=== PATIENT | female | born 1980 | race Caucasian/White ===

== ENCOUNTER 2017-02-28 13:14 | Observation (INO) ==
[2017-02-28] MEDS ORDERED: 0.9 % Sodium Chloride 1,000 ML IVC ONE ×3 (13:29→16:02)
--- NOTE | 2017-02-28 13:34 | Emergency Department Note ---
Disposition Clinical Impression: Orthostatic hypotension Syncope Qualifiers: Syncope type: unspecified Qualified Code(s): R55 - Syncope and collapse Disposition: Admitted As Inpatient Condition: Good Referrals: Nabil Brady DO [Primary Care Provider] - Forms: ED Satisfaction Letter, Work/School Release Time of Disposition: 16:32 General Adult HPI - General Chief complaint: ED General Medical Stated complaint: Not feeling well Time Seen by Provider: 02/28/17 13:22 Source: patient, family Limitations: no limitations Nursing Notes Reviewed: Yes Vital Signs Reviewed: Yes - History of Present Illness HPI Narrative: 37-year-old female presenting to the emergency department with chief complaint of hypotension and syncope. Patient has a long-standing history of these symptoms. Patient has followed up with cardiology and neurology for these symptoms. She was originally placed on steroids to treat her hypotension but she became too hypertensive and was taken off these. Patient states today when she woke up she was feeling not well and overall weak. This is normal for her symptoms of hypotension. She states she was crawling to the bathroom when she syncopized. This was unwitnessed. The patient states she feels that she is dehydrated and her mouth is dry. She denies any nausea, vomiting, diarrhea, recent illnesses. She denies fever. Denies chest pain and shortness of breath. Pain Scale: 0 - Related Data Home Medications Medication Instructions Recorded Confirmed Lurasidone [Latuda] 20 mg PO DAILY 05/12/16 05/12/16 Norethindrone-E.estradiol-Iron 1 tab PO DAILY 05/12/16 05/12/16 [Microgestin Fe 1-20 Tablet] Sertraline [Zoloft] 200 mg PO DAILY 05/12/16 05/12/16 Zaleplon [Sonata] 10 mg PO DAILY 05/12/16 05/12/16 Previous Rx's Medication Instructions Recorded Alprazolam [Xanax] 1 mg PO TID PRN #0 tablet 02/05/15 Citalopram [CeleXA] 20 mg PO DAILY tablet 02/05/15 Fludrocortisone Acetate [Florinef] 0.2 mg PO DAILY #30 tablet 05/13/16 HYDROcodone/Acet 5/325 mg [Crouse 1 tab PO Q4H PRN #10 tab 12/29/16 5-325 mg] Allergies Allergy/AdvReac Type Severity Reaction Status Date / Time No Known Allergies Allergy Verified 02/28/17 13:17 All systems ED: reviewed and negative except as stated. Constitutional: Denies: fever, chills Eyes: Reports: as per HPI ENT ED: Reports: as per HPI Cardiovascular: Denies: chest pain, palpitations Respiratory: Denies: cough, dyspnea, wheezes Gastrointestinal: Denies: abdominal pain, nausea, vomiting Genitourinary: Reports: as per HPI Musculoskeletal: Reports: as per HPI Integumentary: Reports: as per HPI Neurological: Reports: weakness. Denies: numbness, paresthesias Psychiatric: Reports: as per HPI Endocrine: Reports: fatigue Hematological/Lymphatic: Reports: as per HPI Allergic/Immunologic: Reports: as per HPI Past Medical History - Past Medical History Attestation: Yes The following information was validated with the patient. Medical history: Reports: syncope Psychiatric history: Reports: anxiety, depression, previous psychiatric hospitalization - Social History Smoking Status: Never smoker Smokeless Tobacco Status: No Alcohol use: Reports: none Drug use: Reports: none Physical Exam - General Limitations: no limitations General appearance: alert, in no apparent distress - Head Head exam: atraumatic, normocephalic - Chest Chest inspection: Present: normal inspection, symmetric chest wall rise. Absent : tenderness - Respiratory Respiratory exam: Present: normal lung sounds bilaterally. Absent: respiratory distress, wheezes - Cardiovascular Cardiovascular exam: Present: regular rate, normal rhythm, normal heart sounds - Abdominal Exam Abdominal exam: Present: soft, Non-Tender. Absent: distention, guarding, rebound - Extremities Exam Extremities exam: Present: normal inspection, full ROM - Neurological Exam Neurological exam: Present: alert, oriented X3 - Psychiatric Psychiatric exam: Present: normal affect, normal mood - Skin Skin exam: Present: warm, intact Course Course Narrative: 37-year-old female presenting to the emergency Department for chief complaint of hypotension. Patient has long-standing history of hypotension and syncopal episodes. We will fluid bolus and reassess. Starting map approximately 63 - Reevaluation(s) Reevaluation #1: Reassessment of the patient with systolic blood pressure 90 and about the last 5 readings. We will start a second fluid bolus and ambulate the patient to ensure no orthostatic hypotension. Time: 15:06 Reevaluation #2: Patient ambulated after second liter and felt nauseous and lightheaded. Patient will be given a third liter of fluid and reassess. We will reconsider possible admission versus discharge at that time. Time: 16:03 Reevaluation #3: Patient's orthostatics showed systolic of 66 while standing. We feel the patient is too unstable to be discharged home at this time. Patient agrees to be admitted to the hospital. Spoke with the hospitalist Augustus who accepted the patient and wanted a UA to be completed. Time: 16:31 Vital Signs Temperature 97.3 F L 02/28/17 13:15 Pulse Rate 70 02/28/17 13:15 Respiratory Rate 16 02/28/17 13:15 Blood Pressure 77/49 02/28/17 13:15 O2 Sat by Pulse Oximetry 96 02/28/17 13:15 Temperature 97.3 F L 02/28/17 13:15 Pulse Rate 57 02/28/17 16:22 Respiratory Rate 16 02/28/17 14:47 Blood Pressure 85/52 02/28/17 16:22 O2 Sat by Pulse Oximetry 99 02/28/17 14:47 Oxygen Delivery Oxygen Delivery Room Air Medical Decision Making - Medical Records Medical records reviewed: Yes I reviewed the patient's medical records. - Lab Data Lab results reviewed: Yes I reviewed the patient's lab results. Result diagrams: 02/28/17 13:35 02/28/17 13:35 Lab Results 02/28/17 02/28/17 02/28/17 Range/Units 13:35 13:35 13:35 WBC 6.7 (4.3-11.1) K/mcL RBC 4.89 (3.82-4.97) M/mcL Hgb 13.9 (11.5-15.4) g/dL Hct 41.9 (35.3-44.9) % MCV 85.7 (83.0-100.0) fL MCH 28.4 (28.0-33.3) pg MCHC 33.2 (31.6-35.5) g/dL RDW 12.3 (11.5-14.5) % Plt Count 266 (140-400) K/mcL MPV 9.0 L (9.4-12.4) fL Immature Gran % 0.1 (0-4) % Seg Neutrophils % 47.0 % Lymphocytes % 32.0 % Monocytes % 6.6 % Eosinophils % 13.7 % Basophils % 0.6 % Neutrophils # 3.2 (1.6-8.9) K/mcL Lymphocytes # 2.2 (0.6-4.6) K/mcL Monocytes # 0.4 (0.0-1.3) K/mcL Eosinophils # 0.9 H (0.0-0.6) K/mcL Basophils # 0.0 (0.0-0.2) K/mcL Sodium 135 L (136-145) mEq/L Potassium 4.2 (3.5-4.5) mEq/L Chloride 105 (98-109) mEq/L Carbon Dioxide 21 (19-29) mEq/L BUN 11 (7-20) mg/dL Creatinine 1.13 H (0.57-1.11) mg/dL Est GFR ( Amer) > 60 (> 60) Est GFR (Non-Af Amer) 54 L (> 60) BUN/Creatinine Ratio 10 (6-26) Glucose 90 (70-99) mg/dL Calculated Osmolality 279 L (280-300) Calcium 9.1 (8.6-10.8) mg/dL Serum , Qual Negative (Negative) - EKG Data EKG #1 EKG attestation: Yes I reviewed and interpreted this EKG. EKG results narrative: 60 bpm. Normal sinus rhythm. Normal axis. DC interval 128, QRS 78, QTC 461. No sign of ischemia or ST segment elevation. When compared to previous EKG completed on 10/05/2016 no acute changes.
[2017-02-28 13:41] LABS: Basophils % 0.6 %; Eosinophils # 0.9 K/mcL (0.0-0.6); Eosinophils % 13.7 %; Hematocrit 41.9 % (35.3-44.9); Hemoglobin 13.9 g/dL (11.5-15.4); Immature Granulocytes % 0.1 % (0-4); Lymphocytes # 2.2 K/mcL (0.6-4.6); Mean Corpuscular HGB Conc 33.2 g/dL (31.6-35.5); Mean Corpuscular Hemoglobin 28.4 pg (28.0-33.3); Mean Corpuscular Volume 85.7 fL (83.0-100.0); Monocytes # 0.4 K/mcL (0.0-1.3); Monocytes % 6.6 %; Neutrophils # 3.2 K/mcL (1.6-8.9); Platelet Count 266 K/mcL (140-400); Red Blood Count 4.89 M/mcL (3.82-4.97); Red Cell Distribution Width 12.3 % (11.5-14.5)
--- NOTE | 2017-02-28 13:47 | Emergency Department Note ---
START Narrative - START START: I examined this patient and my medical decision-making was reviewed with the emergency medicine resident. I agree with the documented findings, disposition and treatment plan as described except to the extent set forth below. Patient seen with emergency medicine resident Dr. SANDRITA GARCIA, Please see a copy of his note for details of the H&P, ED evaluation, management and disposition. I have independently evaluated the patient and confirmed appropriate portions of the history and physical exam. 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 Says she has been feeling poorly over the past years so normally she lies in bed and goes away in a day, days but has not done so. Has had multiple workups including cardiac and neurology. Denies fever chills vomiting diarrhea dysuria no contacts exotic food recent travel or recent medicine changes. Patient was systolic 77 in the emergency department she appeared tired up in a particular E Adri complected. Physical examination was benign she was performed bradycardic neurologically nonfocal no external signs of trauma or infection. EKG shows a sinus rhythm at about 60 bpm nonspecific changes no acute ischemic changes when compared to her prior EKG of September 2016. Patient states that she normally gets treated with IV fluids and gets better. We given a liter normal saline checking for CBC chemistry panel, EKG Disposition pending
[2017-02-28] MEDS: Ondansetron 4 MG/2 ML VIAL IVP ONE ×2 (13:50→14:01)
[2017-02-28 14:39] LABS: BUN/Creatinine Ratio 10 (6-26); Blood Urea Nitrogen 11 mg/dL (7-20); Calcium 9.1 mg/dL (8.6-10.8); Carbon Dioxide 21 mEq/L (19-29); Chloride 105 mEq/L (98-109); Glucose 90 mg/dL (70-99); Osmolality,Calculated 279 (280-300); Potassium 4.2 mEq/L (3.5-4.5); Sodium 135 mEq/L (136-145); eGFR For African Americans > 60 (> 60); eGFR For Non-African Americans 54 (> 60)
[2017-02-28 16:46] LABS: Bilirubin,Urine Negative (Negative); Blood,Urine Negative (Negative); Clarity,Urine Clear (Clear); Color,Urine Yellow (Yellow); Glucose,Urine (UA) Normal (Normal); Ketones,Urine Negative (Negative); Leukocyte Esterase,Urine Negative (Negative); Nitrite,Urine Negative (Negative); PH,Urine 6.5 pH Units (5.0-8.0); Protein,Urine Negative (Neg-Trace); Specific Gravity,Urine < 1.005 (1.010-1.025); Urobilinogen,Urine Normal (Normal)
[2017-02-28] MEDS ORDERED: Acetaminophen 325 MG TABLET PO PRN (18:43)
[2017-02-28] MEDS ORDERED: Naloxone 0.4 MG/ML INJ IVP PRN (18:43)
[2017-02-28] MEDS ORDERED: *HR* HYDROcodone/Acet 5/325 mg TABLET PO PRN (18:43)
[2017-02-28] MEDS ORDERED: Ondansetron 4 MG/2 ML VIAL IVP PRN (18:43)
[2017-02-28] MEDS ORDERED: *HR* Morphine 2 MG/ML SYRINGE IVP PRN (18:43)
--- NOTE | 2017-02-28 18:46 | Event Note ---
Date of Encounter: 02/28/17 Time of Encounter: 18:44 Patient seen and examined with nurse practitioner. Patient presents with syncopal episodes need to orthostasis. Etiology for orthostasis unclear. Maybe related to neurocardiogenic syncope. She has stopped taking her fludrocortisone a few month ago because it would raise her blood pressure. We will start fludrocortisone every other day. We also rule out adrenal insufficiency. No obvious infectious source. Urine is clean and chest on exam is normal. No evidence of bleeding. Continue hydration. Observation admission
--- NOTE | 2017-02-28 19:16 | Internal Med History&Physical ---
Date of Encounter: 02/28/17 Time of Encounter: 18:00 Assessment and Plan (1) Syncope Current visit: Yes Status: Acute Patient presents with acute on chronic episodes of syncope. Patient states she has had these symptoms for several years and has been seen by cardiology and neurology. Cardiology states she has orthostatic hypotension. Neurology states she has a spot on her brain that she has been referred to another neurologist for follow-up. Patient reports generalized weakness this morning when she became syncopal in the bathroom. Begin fludrocortisone acetate 0.1 mg every 48 to address hypotension. Orthostatic BPs and VS ordered. IV fluid hydration (patient received three boluses in the ED) to continue at 100 mL/HR. Falls/safety precautions ordered. EKG today shows 60 bpm. Normal sinus rhythm. Normal axis. LA interval 128, QRS 78, QTC 461. No sign of ischemia or ST segment elevation. When compared to previous EKG completed on 10/05/2016 no acute changes. Monitor patient and f/u labs. Qualifiers: Syncope type: unspecified Qualified Code(s): R55 - Syncope and collapse (2) Orthostatic hypotension Current visit: Yes Status: Chronic Hx of chronic orthostatic hypotension. Orthostatic BPs and VS ordered. Will begin fludrocortisone acetate 0.1 mg every 48. (3) Anxiety and depression Current visit: Yes Status: Chronic Hx of chronic anxiety, bipolar depression and previous suicidal ideation. Patient denies any current suicidal ideation and states that she was previously hospitalized for ideations approximately one year ago. Will continue Xanax and Zoloft. Hold Prozac due to risk for seratonin syndrome since patient also taking Zoloft. Hold Rexulti due to contraindications in taking with Xanax and Zoloft. Monitor patient for signs of depression, anxiety, and suicidal ideation. (4) DVT prophylaxis Current visit: Yes Status: Acute Heparin 5,000 untis SQ Q8 ordered for DVT prophylaxis. Internal Medicine - H&P: HPI Chief complaint: Syncope/Hypotension Admitted From: Emergency Dept Plans for Post Hospital Care: Home History of present illness: Ms. Rabago is a 37 year old female with medical history of syncope and psychiatric history of anxiety, bipolar depression, and previous psychiatric hospitalization for suicidal ideations presents to the ED with chief complaint of syncope and hypertension. Patient states she has had these symptoms for several years and has been seen by cardiology and neurology. Cardiology states she has orthostatic hypotension. Neurology states she has a spot on her brain that she has been referred to another neurologist for follow-up. Patient reports generalized weakness this morning when she became syncopal in the bathroom. States she feels dehydrated. Patient reports left kidney pain for the past three months and previous UTI during same time period but denies chest pain, shortness of breath, recent illness, fever, chills, nausea, vomiting, diarrhea, changes in vision, abdominal pain, unusual bleeding, or headache. Patient has no know allergies. Patient states she was placed on fludrocortisone acetate for hypertension but she stopped 6 months ago due to becoming hypertensive. Upon admission, patient's vital signs include temperature of 97.3F, heart rate of 70 BPM, respiratory rate 16, BP of 77/49, and SPO2 96% on room air. Pertinent abnormal labs include sodium of 135, creatinine 1.13, GFR 54, and calulated osmolality of 279. Serum test negative. Initial urinalysis negative for culture. EKG today shows normal sinus rhythm. Normal axis. LA interval 128, QRS 78, QTC 461. No sign of ischemia or ST elevation. No acute changes when compared to previous EKG of 10/05/16. 2-View CXR today shows no acute cardiopulmonary process. Polyps. Patient is alert and oriented 3 and states she is currently not in any distress. Heart rate is RRR. Lungs are clear bilaterally on auscultation. Patient is hemodynamically stable and reports no acute distress. Information obtained from patient, chart review, and previous medical records. Ms. Rabago is at moderate risk for further morbidity based on current symptoms and history of previous syncopal episodes and will be placed as observation status. Time spent with patient >40 minutes. Past Med Surg Social Fam HX - Past Medical History Source: patient Medical history: syncope Psychiatric history: anxiety, depression, previous psychiatric hospitalization - Social History Smoking Status: Never smoker Smokeless Tobacco Status: No Alcohol use: none Drug use: none Current living situation: Home Activity Level: Independent ambulation Recent Out of Country Travel Within the Last 8 Weeks: No Exposure or Possible Exposure to Illness During Travel: No - Family History Mother Race: Family Member Ethnicity: Non- Living Status: Age at : 72 Cause of : COPD complications Hx Family Respiratory Disorders: Yes (COPD) Father Race: Family Member Ethnicity: Non- Living Status: Age at : 79 Cause of : Sepsis/Rhabdo Hx Family Cardiac Disorders: Yes (TIAs, HTN) Hx Family Endocrine Disorder: Yes (DM) Sister Race: Family Member Ethnicity: Non- Living Status: Still Living Hx Family Cardiac Disorders: Yes (HTN) Hx Family Musculoskeletal Disorders: Yes (Fibromyalgia) Internal Medicine - H&P: Meds Norethindrone-E.estradiol-Iron [Microgestin Fe 1-20 Tablet] 1 tab PO DAILY 05/12 [History] ALPRAZolam [Xanax 0.25 MG Tablet] 0.25 mg PO QID 02/28/17 [History] Brexpiprazole [Rexulti] 2 mg PO DAILY 02/28/17 [History] FLUoxetine HCl [Fluoxetine HCl] 40 mg PO DAILY 02/28/17 [History] Sertraline [Zoloft] 200 mg PO DAILY 02/28/17 [History] 3 Allergy/AdvReac Type Severity Reaction Status Date / Time No Known Allergies Allergy Verified 02/28/17 16:46 All Systems PM: A 10-system review of systems was performed and is negative for pertinent findings except as documented above in the HPI. - Constitutional Constitutional: as per HPI, falls, weakness, no chills, no fever(s), no night sweats - EENT Eyes: no change in vision, no discharge, no pain, no photophobia Ears: no ear discharge, no ear pain, no tinnitus Nose, mouth and throat: no dysphagia, no nasal discharge, no neck pain, no sore throat - Breasts Breasts: as per HPI - Cardiovascular Cardiovascular ROS IM: as per HPI, syncope, no chest pain, no diaphoresis, no dyspnea, no lightheadedness, no palpitations - Respiratory Respiratory: no cough, no dyspnea, no wheezing, no excessive phlegm production - Gastrointestinal Gastrointestinal: no abdominal pain, no diarrhea, no hematemesis, no hematochezia, no melena, no nausea, no vomiting - Genitourinary Genitourinary: no change in urinary stream, no dysuria, no flank pain, no hematuria Menstruation: as per HPI - Musculoskeletal Musculoskeletal ROS IM: no numbness, no tingling - Integumentary Integumentary IM: no rash, no unusual bruising - Neurological Neurological ROS: as per HPI (Syncope) - Psychiatric Psychiatric: as per HPI, anxiety, depression, suicidal ideation (One year ago w/ psychiatric hospitalization w/o suicide attempt) - Endocrine Endocrine IM: as per HPI - Hematologic/Lymphatic Hematologic/Lymphatic: no easy bruising - Allergic/Immunologic Allergic/Immunologic: as per HPI - Constitutional Vitals: Temp Pulse Resp BP Pulse Ox 98.3 F 69 12 116/68 100 02/28/17 17:19 02/28/17 17:19 02/28/17 17:19 02/28/17 17:19 02/28/17 17:19 General appearance: Present: cooperative, A&O X 3, pleasant, no acute distress, answers questions appropriately - Head Head exam: Present: atraumatic, normocephalic - Eye Eye exam: Present: PERRL, conjuntiva pink, sclera anicteric Pupils: Present: PERRL - ENT ENT exam: Present: normal exam, normal external ear exam - Neck Neck exam general surgery: Present: normal inspection, supple, trachea midline - Respiratory Respiratory exam: Present: CTAB. Absent: accessory muscle use, rales, rhonchi, wheezes - Cardiovascular Cardiovascular exam: Present: RRR, +S1, +S2. Absent: diastolic murmur, gallop, rubs, systolic murmur - GI/Abdominal GI/Abdominal exam: Present: normal bowel sounds, soft, no peritoneal signs. Absent: distended, tenderness - Rectal Rectal exam: Present: deferred - Additional comments: exam deferred. - Extremities Exam Extremities exam: Present: warm, radial pulses palpable and symmetrical. Absent : calf tenderness, cyanotic, pedal edema - Back Exam Back exam: Present: normal inspection - Neurological Exam Neurological exam: Present: CN II-XII intact, oriented X3, no focal deficits. Absent: pronater drift, facial droop, speech deficit - Psychiatric Psychiatric exam: Present: normal affect, normal mood - Skin Skin exam: Present: dry, intact Internal Med - H&P Results - Labs CBC & Chem 7: 02/28/17 13:35 02/28/17 13:35 - EKG Data EKG shows normal: sinus rhythm Rate: normal - EKG Data Prior EKG available for review: yes When compared to previous EKG: there is no significant change Interpretation IM: normal EKG EKG comments: 02/28/17 19:28 60 bpm. Normal sinus rhythm. Normal axis. LA interval 128, QRS 78, QTC 461. No sign of ischemia or ST segment elevation. When compared to previous EKG completed on 10/05/2016 no acute changes. - Impressions ITS Impressions Chest X-Ray 02/28/17 17:28 IMPRESSION: No acute cardiopulmonary disease. D/ / John Lugo MD / John Lugo MD Interpreting Provider: John Lugo MD - Diagnostic Studies Chest x-ray Additional comments: Impressions Chest X-Ray 02/28/17 17:28
[2017-02-28] MEDS: 0.9 % Sodium Chloride 1,000 ML IVC SCH (19:54)
[2017-02-28] MEDS: ALPRAZolam 0.25 MG TABLET PO SCH (19:54)
[2017-02-28] MEDS: *HR* Heparin 5,000 UNIT/ML VIAL SQ SCH (21:18)
[2017-03-01] MEDS ORDERED: ALPRAZolam 0.5 MG TABLET PO ONE (00:41)
[2017-03-01 04:34] LABS: Basophils # 0.1 K/mcL (0.0-0.2); Basophils % 0.9 %; Eosinophils # 0.9 K/mcL (0.0-0.6); Hematocrit 35.4 % (35.3-44.9); Hemoglobin 11.7 g/dL (11.5-15.4); Immature Granulocytes % 0.2 % (0-4); Lymphocytes # 1.9 K/mcL (0.6-4.6); Lymphocytes % 33.2 %; Mean Corpuscular HGB Conc 33.1 g/dL (31.6-35.5); Mean Corpuscular Hemoglobin 28.4 pg (28.0-33.3); Mean Corpuscular Volume 85.9 fL (83.0-100.0); Mean Platelet Volume 9.6 fL (9.4-12.4); Monocytes # 0.4 K/mcL (0.0-1.3); Monocytes % 6.6 %; Neutrophils # 2.4 K/mcL (1.6-8.9); Platelet Count 191 K/mcL (140-400); Red Blood Count 4.12 M/mcL (3.82-4.97); Red Cell Distribution Width 12.3 % (11.5-14.5); Segmented Neutrophils % 43.1 %
[2017-03-01 04:35] LABS: INR 0.9; Prothrombin Time 9.9 Seconds (9.4-12.1)
[2017-03-01 04:37] LABS: Activated Partial Thrombo Time 25.3 Seconds (26.0-36.0)
[2017-03-01 04:40] LABS: Hemoglobin A1C 4.9 %
[2017-03-01 04:48] LABS: Alanine Aminotransferase 15 Units/L (0-55); Albumin 3.1 g/dL (3.5-5.0); Alkaline Phosphatase 51 Units/L (38-126); Aspartate Amino Transferase 14 Units/L (5-34); BUN/Creatinine Ratio 12 (6-26); Bilirubin,Total 0.7 mg/dL (0.2-1.2); Blood Urea Nitrogen 12 mg/dL (7-20); Calcium 7.8 mg/dL (8.6-10.8); Carbon Dioxide 20 mEq/L (19-29); Chloride 112 mEq/L (98-109); Chol/HDL Ratio 5.9 (0-4.9); Cholesterol 183 mg/dL (< 200); Glucose 83 mg/dL (70-99); HDL Cholesterol 31 mg/dL (40-59); LDL Cholesterol,Calculated 110 mg/dL (0-99); Osmolality,Calculated 285 (280-300); Phosphorous 2.5 mg/dL (2.3-4.7); Potassium 3.7 mEq/L (3.5-4.5); Sodium 138 mEq/L (136-145); Total Protein 6.1 g/dL (6.0-8.3); Triglycerides 209 mg/dL (< 150); eGFR For African Americans > 60 (> 60); eGFR For Non-African Americans > 60 (> 60)
[2017-03-01] MEDS: *HR* Heparin 5,000 UNIT/ML VIAL SQ SCH (05:46)
[2017-03-01] MEDS: 0.9 % Sodium Chloride 1,000 ML IVC SCH (05:47)
[2017-03-01] MEDS ORDERED: FLUoxetine 20 MG CAPSULE PO SCH (09:00)
[2017-03-01] MEDS ORDERED: MICROGESTIN FE PO SCH (09:00)
[2017-03-01] MEDS: ALPRAZolam 0.25 MG TABLET PO SCH (09:02)
[2017-03-01 10:07] VITALS: BP 120/76
--- NOTE | 2017-03-01 10:38 | Discharge Summary ---
<EseJimi Sanches - Last Filed: 03/01/17 10:34> Date of Encounter: 03/01/17 Time of Encounter: 10:34 - Discharge Diagnosis (1) Syncope Priority: Primary Status: Acute Qualifiers: Syncope type: unspecified Qualified Code(s): R55 - Syncope and collapse (2) Orthostatic hypotension Priority: Secondary Status: Chronic (3) DVT prophylaxis Priority: Secondary Status: Acute (4) Anxiety and depression Priority: Secondary Status: Chronic - Discharge Medications Prescriptions: Fludrocortisone Acetate [Florinef] 0.5 mg PO DAILY #30 tablet Home Medications: Norethindrone-E.estradiol-Iron [Microgestin Fe 1-20 Tablet] 1 tab PO DAILY 05/12 [History] ALPRAZolam [Xanax 0.25 MG Tablet] 0.25 mg PO QID 02/28/17 [History] Brexpiprazole [Rexulti] 2 mg PO DAILY 02/28/17 [History] FLUoxetine HCl [Fluoxetine HCl] 40 mg PO DAILY 02/28/17 [History] Sertraline [Zoloft] 200 mg PO DAILY 02/28/17 [History] Fludrocortisone Acetate [Florinef] 0.5 mg PO DAILY #30 tablet 03/01/17 [Rx] Allergies/Adverse Reactions: 3 Allergy/AdvReac Type Severity Reaction Status Date / Time No Known Allergies Allergy Verified 02/28/17 16:46 Date of admission: 02/28/17 16:45 Primary care physician: Nabil Brady, Discharging clinician: Jimi Mulligan Anticipated date of discharge: 03/01/17 - Patient Status Disposition: Home, Self-Care Condition: Good Functional capacity at discharge: independent ambulation Overall status at discharge: patient is back to baseline - Discharge Instructions Instructions: Fludrocortisone Acetate (By mouth), Syncope (GEN), Hypotension ( GEN) Follow Up With: Nabil Brady DO [Primary Care Provider] - (Web request sent 03/01/17 will call with F/U) Additional Instructions: Please start taking Florinef as prescribed. Please follow-up with her primary care physician. If you have the side effect of hypertension secondary to Florinef contact her PCP for further instructions. Please return to ER if you have additional syncopal events, dizziness, chest pain, blurry vision. - Diet and Activity Activity: increase activity as tolerated Diet: advance to your usual diet Hospital course: Ms. Rabago is a 37 year old female presents with chief complaint of syncope. Patient states that she has a history of orthostatic hypotension and is followed by cardiology and neurology. She had woken up yesterday and well heading to the bathroom she passed out. Patient states that she is dehydrated. She is had similar episodes in the past and has been admitted for the same reason. She denied trauma as she stated she was crawling on the floor when this syncope episode happened. On presentation patient's blood pressure was 77/ 49. She was resuscitated with IV fluids. Patient was also started on fludrocortisone acetate. She has taken this before however this was discontinued due to side effect of hypertension. Patient was started on a lower regimen of 0.1 mg every 48. Patient is able to ambulate on her own without dizziness, syncope. She denies blurry vision, chest pain, palpitations , abdominal pain. She is able to tolerate her diet. Patient is ready for discharge. Plan: Patient will start on fludrocortisone acetate 0.05 mg daily. She will follow up with primary care physician outpatient. - Time Spent with Patient Total time spent providing and/or coordinating discharge services: - Constitutional Vitals: Temp Pulse Resp BP Pulse Ox 97.8 F 81 12 120/76 100 03/01/17 10:05 03/01/17 10:05 03/01/17 10:05 03/01/17 10:05 03/01/17 10:05 General appearance: Present: cooperative, A&O X 3, pleasant, no acute distress, answers questions appropriately - Head Head exam: Present: atraumatic, normocephalic - Eye Eye exam: Present: PERRL, conjuntiva pink, sclera anicteric - Neck Neck exam general surgery: Present: supple, trachea midline. Absent: lymphadenopathy - Respiratory Respiratory exam: Present: CTAB. Absent: accessory muscle use, rales, rhonchi, wheezes - Cardiovascular Cardiovascular exam: Present: RRR, +S1, +S2. Absent: diastolic murmur, gallop, rubs, systolic murmur - GI/Abdominal GI/Abdominal exam: Present: normal bowel sounds, soft, no peritoneal signs. Absent: distended, tenderness - Extremities Exam Extremities exam: Present: warm, radial pulses palpable and symmetrical. Absent : calf tenderness, cyanotic, pedal edema - Neurological Exam Neurological exam: Present: CN II-XII intact, oriented X3, no focal deficits. Absent: pronater drift, facial droop, speech deficit - Skin Skin exam: Present: dry, intact <Vignesh Lopez - Last Filed: 03/01/17 12:32> Date of Encounter: 03/01/17 - Discharge Diagnosis (1) Orthostatic hypotension Priority: Primary Status: Chronic (2) Syncope Status: Acute Qualifiers: Syncope type: unspecified Qualified Code(s): R55 - Syncope and collapse Date of admission: 02/28/17 16:45 Primary care physician: Nabil Brady, [facility] course: Ms. Rabago is a 37 year old female - Time Spent with Patient Total time spent providing and/or coordinating discharge services: - Constitutional Vitals: Temp Pulse Resp BP Pulse Ox 97.8 F 81 12 120/76 100 03/01/17 10:05 03/01/17 10:05 03/01/17 10:05 03/01/17 10:05 03/01/17 10:05 - Attending Attestation I examined this patient and my medical decision-making was reviewed with the Resident Physician on 03/01/17. I agree with the documented findings, disposition and treatment plan as described except to the extent set forth below. Ms. Rabago has been in observation for near syncope and orthostatic hypotension. She has been off Florinef recently due to hypertension. Now she is afebrile with stable vitals and feel much improved. She is ready for discharge home. Exam Alert. Pleasant Mucus membranes moist Heart reg Lungs clear Abd soft No edema Plan D/C home today Follow up with PCP Florinef 0.5mg daily Pt refused flu vaccine at this time.
--- NOTE | 2017-03-01 18:45 | Electrocardiograph Report ---
[address] [address] Test Date: 2017-02-28 Pat Name: Sera Rabago Department: 103 Room: 2NE22 Gender: F [employer]: REY : 1980 Requested By: Yun Martinez Order Number: [id number] Reading MD: Shiraz Shetty MD Measurements Intervals [place] Rate: 60 P: 51 NC: 128 QRS: 92 QRSD: 78 T: 63 QT: 460 QTc: 461 Interpretive Statements SINUS RHYTHM PAC W ABERRANT CONDUCTION BASELINE ARTIFACT BORDERLINE RIGHT AXIS DEVIATION Electronically Signed On 03-01-2017 18:43:17 EDT by Shiraz Shetty MD
[2017-03-04 07:41] LABS: Urine Collection Duration RANDOM hr; Urine Collection Volume RANDOM mL
== END 2017-03-01 11:45 | disposition home or self-care (01) ==
LOC: EMEROO 13:14 → 2NENU 13:14
PROVIDERS: ADMIT Internal Medicine; ATTEND Internal Medicine